=== PATIENT | male | born 1975 | race Caucasian/White ===

== ENCOUNTER 2017-12-17 14:31 | Emergency (ER) | payer BC ==
[2017-12-17] MEDS ORDERED: DIPH,PERTUS(ACELL)TETVAC-LF 0.5 ML VIAL IM ONE (14:52)
[2017-12-17] MEDS ORDERED: MORPHINE SULFATE 4 MG/ML SYRINGE IM STA (14:52)
[2017-12-17] MEDS ORDERED: HYDROcodone/APAP 5-325MG 1 EACH TAB PO STA (14:53)
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
[2017-12-17] MEDS ORDERED: KETAMINE 50 MG/ML 10 ML VIAL IV ONE (15:37)
[2017-12-17] MEDS ORDERED: MORPHINE SULFATE 4 MG/ML SYRINGE IVP STA (17:05)
--- NOTE | 2017-12-17 17:17 | XR ---
EXAMINATION TYPE: XR forearm LT DATE OF EXAM: 12/17/2017 CLINICAL HISTORY: Postreduction images of the known fracture/dislocation of the left forearm. TECHNIQUE: Two views of the left forearm are obtained. COMPARISON: 12/17/2017 left forearm radiograph's. FINDINGS: There remains approximately 1.7 cm cortical overlap of the radial diaphysis with the distal fracture fragment. Distal fracture fragment is seen dorsally over the proximal fracture fragment wit h posterior/dorsal angulation. There is improved alignment of the distal ulna although the distal uln a remains posteriorly displaced. The known fracture of the distal radial metaphysis is poorly visuali zed given the new overlying casting material. IMPRESSION: Transversely oriented mid diaphyseal radial fracture remains with 1.7 cm of overlap of th e proximal and distal fracture fragments. There is also mild persistent posterior disc distal ulna.
[2017-12-17] MEDS ORDERED: ACET/COD 300 MG/30 MG STARTER PACK 6 TAB BTL PO STA (17:37)
[2017-12-17 18:03] VITALS: RESP 18
[2017-12-17 18:06] VITALS: BP 133/76; PULSE 59; TEMP 98.3
--- NOTE | 2017-12-21 04:24 | CDI ---
Documentation Clarification OP Dear NAS Heck: As reviewed the chart, Procedure stop time is missing, Please provide addendum for procedure stop time to code the moderate sedation. Thank you, Shilpi Palma Talent Development Director If you have any question, Please contact manager lab at [phone] [facility]
== END 2017-12-17 18:00 | disposition home or self-care (01) ==
LOC: EC 14:31
DX: S52.592A Other fractures of lower end of left radius, initial encounter for closed fracture (principal); S52.602A Unspecified fracture of lower end of left ulna, initial encounter for closed fracture; S80.811A Abrasion, right lower leg, initial encounter; S80.812A Abrasion, left lower leg, initial encounter; S40.811A Abrasion of right upper arm, initial encounter; F17.200 Nicotine dependence, unspecified, uncomplicated; Z23 Encounter for immunization; V86.06XA Driver of dirt bike or motor/cross bike injured in traffic accident, initial encounter; Y93.55 Activity, bike riding
CPT/HCPCS: 99284; 25605; 99152; 99153 ×5; 96374; 90471; 73090; 73130; 90715; J2270